=== PATIENT | female | born 1945 | race Caucasian/White ===

== ENCOUNTER → 2017-11-07 | Outpatient (CLI) | payer MEDICARE | END | disposition home or self-care (01) | LOC: CVU 08:30 → EDSTATUS 09:00 | PROVIDERS: ATTEND Internal Medicine Cardiovascular Disease | DX: I37.1 Nonrheumatic pulmonary valve insufficiency (principal); I34.0 Nonrheumatic mitral (valve) insufficiency; I10 Essential (primary) hypertension | CPT/HCPCS: 93306 ==